=== PATIENT | female | born 1980 | race Caucasian/White ===

== ENCOUNTER 2018-10-30 18:57 | Emergency (ER) | payer OTHER ==
[~2018-10-30] VITALS: Ht 172.7 cm; Wt 68.9 kg
[~2018-10-30 18:57] MED LIST: CEPH-443 PO; IBUP-1542 PO
[2018-10-30 19:21] VITALS: Ht 172.7 cm; Wt 68.9 kg
[2018-10-30 22:32] VITALS: BP 128/77; PULSE 77; RESP 17
== END 2018-10-30 22:32 | disposition home or self-care (01) ==
LOC: FTE 18:57
DX: N63.11 Unspecified lump in the right breast, upper outer quadrant (principal)
CPT/HCPCS: 76642; 81025; Z7502